=== PATIENT | female | born 1960 | race Caucasian/White ===

== ENCOUNTER 2018-01-04 07:31 | Observation (INO) | payer OTHER ==
[2018-01-04] MEDS ORDERED: FENTANYL CITR 100 MCG/2 ML ONE (08:22)
[2018-01-04] MEDS ORDERED: ONDANSETRON 4 MG/2 ML VIAL ONE (08:22)
[2018-01-04] MEDS ORDERED: NA CHLORIDE 0.9% 1,000 ML ONE (08:23)
[2018-01-04 08:37] LABS: Absolute Lymphocytes (CBC) 1.4 K/uL (0.7-4.9); Absolute Monocytes 0.5 K/uL (0.1-1.3); Basophils % 0.4 % (0-1.3); Eosinophils % 0.6 % (0-4.4); Hematocrit 42.4 % (36.0-45.0); Lymphocytes % 11.5 % (15.3-44.8); MCH 32.3 pg (27.0-35.0); MCV 90.8 fL (80-100); MPV 9.7 fL (7.6-11.3); Monocytes % 4.4 % (3.3-12.3); RBC Red Blood Cell Count 4.67 M/uL (3.86-4.86)
[2018-01-04 08:46] LABS: Protime INR 3.43
[2018-01-04 08:54] LABS: Albumin 4.3 g/dL (3.4-5.0); Bilirubin Direct 0.2 mg/dL (0-0.2); Bilirubin Total 1.2 mg/dL (0.2-1.0); CKMB Creatine Kinase MB 1.7 ng/mL (0.3-3.6); Magnesium 2.1 mg/dL (1.8-2.4); Potassium 3.1 mmol/L (3.5-5.1); Protein, Total 8.2 g/dL (6.4-8.2)
--- NOTE | 2018-01-04 09:27 | RAD REPORT ---
EXAM DESCRIPTION: CT - Chest Abdomen Pelvis W Cont - 01/04/2018 9:13 am CLINICAL HISTORY: Fall, chest pain, left-sided abdomen and back pain COMPARISON: None. TECHNIQUE: Following dynamic enhancement using 100 milliliters nonionic IV contrast, axial imaging o f the chest, abdomen and pelvis was performed. Biphasic technique was utilized through the abdomen. Oral contrast was administered. All CT scans are performed using dose optimization technique as appropriate and may include automated exposure control or mA/KV adjustment according to patient size. FINDINGS: Lungs are clear of mass and infiltrate. No pleural effusion, pleural thickening or pneumot horax. Minimal posterior gutter dependent atelectasis. No significant aortic or pulmonary arterial tr ee finding. Mediastinal and hilar regions show no mass or abnormal lymphadenopathy. No chest wall mas s or axillary lymphadenopathy. Nondisplaced posterior left eleventh rib fracture. There is contusion of the posterior left subcutaneous fatty tissues of the lower back. No hematoma of the paraspinal mus culature. No other rib fractures seen. The liver, spleen and pancreas show no acute or posttraumatic findings. Liver does demonstrate a mild diffuse fatty infiltration pattern. Gallbladder and biliary tree are unremarkable. Gallstones can b e occult on CT imaging. Symmetric renal function is seen with no mass or hydronephrosis. No adrenal a bnormalities. No retroperitoneal hematoma or contusion changes. Large amount of stool is present filling but not dilating the colon. An acute colon process is not id entifiable. No acute stomach or small bowel finding identifiable. No acute GI findings seen. No acute or destructive bony process. Scattered bony degenerative changes are present. No significant vascular findings. IMPRESSION: Nondisplaced posterior left eleventh rib fracture. There is contusion change in the subc utaneous fatty tissues of the lower thoracic adjacent to this rib fracture. There is no pneumothorax, pulmonary contusion or splenic injury. No other acute traumatic finding. Full findings are detailed in the body of the report.
--- NOTE | 2018-01-04 09:56 | RAD REPORT ---
EXAM DESCRIPTION: RAD - Chest Single View - 01/04/2018 9:44 am CLINICAL HISTORY: Fall with chest trauma several days earlier. , persistent pain COMPARISON: August 2015 TECHNIQUE: AP portable chest image was obtained 0933 hour . FINDINGS: Lung volumes are low. No pulmonary contusion, pneumothorax or pleural fluid collection. St ernotomy wires are in place. Heart and vasculature are normal. No measurable pleural effusion and no pneumothorax. No gross bony abnormality seen. No acute aortic findings suspected. Chest exam was perf ormed subsequent to the CT chest. The eleventh rib fracture is not defined on shallow inspiration por table imaging. IMPRESSION: No acute cardiopulmonary process. Please see additional findings on CT chest report.
--- NOTE | 2018-01-04 10:09 | ER ---
Nurse's Notes [facility] Name: Cathy Clarke Age: 57 yrs Sex: Female : 1960 Arrival Date: 01/04/2018 Time: 07:31 Bed 5 Private MD: Diagnosis: Fracture of one rib, left side;Coagulation defect, unspecified;Chronic pain due to trauma-intractable;Hypokalemia Presentation: 01/04 07:39 Presenting complaint: Patient states: Fell while getting out of the bathtub Saturday, ss seen at urgent care yesterday, had XRAYs completed which were negative. Pt reports her L mid-lower back has been having spasms since last night. Transition of care: patient was not received from another setting of care. Onset of symptoms was January 01, 2018. Risk Assessment: Do you want to hurt yourself or someone else? Patient reports no desire to harm self or others. Initial Sepsis Screen: Does the patient meet any 2 criteria? No. Patient's initial sepsis screen is negative. Does the patient have a suspected source of infection? No. Patient's initial sepsis screen is negative. Care prior to arrival: None. 07:39 Method Of Arrival: Ambulatory ss 07:39 Acuity: CONNIE 4 ss Historical: - Allergies: 07:46 Codeine; ss 07:46 Augmentin; ss - PSHx: 07:46 Hysterectomy; mechanical heart valve; ss - Immunization history:: Adult Immunizations up to date. - Social history:: Smoking status: Patient/guardian denies using tobacco. - Ebola Screening: : Patient denies exposure to infectious person Patient denies travel to an Ebola-affected area in the 21 days before illness onset. - Family history:: not pertinent. Screenin:00 Abuse screen: Denies threats or abuse. Denies injuries from another. Nutritional ss screening: No deficits noted. On. Tuberculosis screening: Never had TB. Fall Risk None identified. Assessment: 07:39 General: Pt ambulated with ease to exam room five, refused to sit in wheelchair. Pt sat ss in exam bed which seemed to be a little uncomfortable, but was able to tolerate sitting after repositioning in bed. . Pain: Complains of pain in lumbar area and left mid back Pain currently is 4 out of 10 on a pain scale. at worst was 10 out of 10 on a pain scale. Quality of pain is described as aching, pt reports intermittent back spasms that began yesterday and that current medication for pain that was given by urgent care yesterday was not working. Pain began 4 days ago Is continuous. Neuro: Level of Consciousness is awake, alert, obeys commands, Oriented to person, place, time, situation, Purchase Analyst are equal bilaterally Speech is normal, Facial symmetry appears normal, Pupils are PERRLA. Respiratory: Airway is patent Trachea midline Respiratory effort is even, unlabored, Respiratory pattern is regular, symmetrical. Derm: Skin is intact, is healthy with good turgor, Skin is dry, Skin is pink, warm \\T\\ dry. normal. Musculoskeletal: Circulation, motion, and sensation intact. Capillary refill < 3 seconds, is brisk, in bilateral fingers. Swelling absent. 10:20 Reassessment: PO Challenge initiated. aj1 10:24 General: Appears in no apparent distress. comfortable, Behavior is. Pain: Complains of aj1 pain in lumbar area, left low back and left mid back Pain does not radiate. Neuro: Level of Consciousness is awake, alert, obeys commands, Oriented to person, place, time, situation, Speech is normal, Facial symmetry appears normal, Reports back pain. Cardiovascular: Patient's skin is warm and dry. Respiratory: Airway is patent Respiratory effort is even, unlabored, Respiratory pattern is regular, symmetrical. GI: No signs and/or symptoms were reported involving the gastrointestinal system. : No signs and/or symptoms were reported regarding the genitourinary system. EENT: No signs and/or symptoms were reported regarding the EENT system. Derm: Skin is pink, warm \\T\\ dry. normal. Musculoskeletal: Range of motion: intact in all extremities. 11:30 Reassessment: Pt is refusing to go home, states that she needs something strong to go home with. Dr. Palacios notified. 12:04 Reassessment: Pt is still upset after speaking with Dr. Palacios and myself about ss alternative plan of care. Pt seemed okay with plan of care until attempting to discharge again. Pt is upset still because she is still wanting "something stronger" to go home with. Percocet has been requested and patient asks if she can go home with more fentanyl patches. Donor Relations Manager, Lani notified and is here to speak with patient and . 12:25 General: While speaking with patient with Blaine GaribayDonor Relations Manager, patient reports that ss initial injury was in fact December 11, 2017 in [place], [place]. 12:26 Reassessment: blaine Garibaywarehouse representative has called Retail Pricing Coordinator Kaden Walker, who states ss to go ahead and admit patient. 13:53 Reassessment: Called cindy Davis RN. [place] with registration reports that patient ss is refusing to have wristband changed with room assignment. Pt is refusing until admitting physician sees her to see if she will receive something that is stronger for pain control on the floor. Dr. Hoffmann notified and states he will be down to speak with the patient soon. Pt verbalizes understanding. 14:01 Reassessment: Dr. Hoffmann at bedside discussing POC with patient. 14:13 Reassessment: Pt appears comfortable sitting up straight in bed smiling, eating chic ss maru a. Vital Signs: 07:46 BP 136 / 82; Pulse 83; Resp 16; Temp 97.8(TE); Pulse Ox 97% on R/A; Weight 72.57 kg; ss Height 5 ft. 5 in. (165.10 cm); Pain 5/10; 09:18 BP 127 / 69; Pulse 68; Resp 16; Pulse Ox 96% ; ss 10:24 BP 105 / 56; Pulse 71; Resp 18; Pulse Ox 97% on R/A; aj1 12:30 BP 140 / 79; Pulse 75; Resp 16; Pulse Ox 98% ; Pain 4/10; ss 13:30 BP 112 / 66; Pulse 67; Resp 14; Pulse Ox 96% on R/A; Pain 4/10; ss 07:46 Body Mass Index 26.63 (72.57 kg, 165.10 cm) ED Course: 07:31 Patient arrived in ED. as 07:37 Jose Palacois MD is Attending Physician. maria alejandra 07:45 Triage completed. ss 07:46 Arm band placed on right wrist. ss 07:49 Lluvia Louis, RN is Primary Nurse. ph 08:20 Missed attempt(s): 20 gauge in left antecubital area. Bleeding controlled, band aid dh3 applied, catheter tip intact. 08:23 Initial lab(s) drawn, by me, sent to lab. T\\T\\S collected, blood band applied to patient. dh3 Inserted saline lock: 22 gauge in left forearm, using aseptic technique. Blood collected. 09:00 Patient has correct armband on for positive identification. Bed in low position. Call ss light in reach. Side rails up X 1. Adult w/ patient. Pulse ox on. NIBP on. 09:13 CT Chest, Abdomen, Pelvis - W/Contrast: iv only In Process Unspecified. EDMS 09:13 CT completed. Patient tolerated procedure well. Patient moved back from CT. bq 09:40 XRAY Chest (1 view) In Process Unspecified. EDMS 11:04 INCENTIVE SPIROMETRY Sent. ss 12:33 Horace Hoffmann MD is Hospitalizing Provider. maria alejandra 14:20 No provider procedures requiring assistance completed. Patient admitted, IV remains in ss place. Administered Medications: 08:36 Drug: fentaNYL (PF) 25 mcg Route: IVP; Site: left forearm; ph 12:10 Follow up: Response: No adverse reaction ss 08:37 Drug: NS 0.9% 1000 ml Route: IV; Rate: 125 ml/hr; Site: left forearm; ph 08:37 Drug: Zofran 4 mg Route: IVP; Site: left forearm; ph 12:10 Follow up: Response: No adverse reaction ss 10:20 Drug: Potassium Effervescent Tablet 25 mEq Route: PO; aj1 12:10 Follow up: Response: No adverse reaction ss 10:55 Drug: fentaNYL (PF) 25 mcg Route: IVP; Site: left antecubital; ss 12:11 Follow up: Response: No adverse reaction; No change in condition ss 11:04 Drug: Valium 5 mg Route: PO; ss 12:11 Follow up: Response: No adverse reaction ss 11:04 Not Given (Duplicate Order): fentaNYL (PF) 25 mcg IVP once ss 11:04 Not Given (Duplicate Order): fentaNYL (PF) 25 mcg IVP once ss 11:57 Drug: fentaNYL Patch (50 mcg/hr) 1 patches {Note: R upper arm.} Route: Transdermal; Site: affected area; Outcome: 10:08 Discharge ordered by . maria alejandra 12:34 Decision to Hospitalize by Provider. maria alejandra 14:20 Admitted to Med/surg accompanied by tech, via wheelchair, room 225, with chart, Report ss called to MANUEL Davis see nurses notes 14:20 Condition: improved 14:20 Instructed on the need for admit. 14:24 Patient left the ED. ss Signatures: Dispatcher [employer] EDJennie Plata RN RN aj1 Jose Palacios MD MD cha Quilty, Betty bq Martinez, Amelia as Smirch, Shelby, RN RN ss Lluvia Louis RN RN Elizabeth Gaitan [facility] Corrections: (The following items were deleted from the chart) 14:41 12:04 Reassessment: Pt is still upset after speaking with Dr. Palacios and myself about ss alternative plan of care. Pt seemed okay with plan of care until attempting to discharge again. Pt is upset still because she is still wanting "something stronger" to go home with. Percocet has been requested and patient asks if she can go home with more fentanyl patches. Donor Relations Manager, Lani notified and is here to speak with patient and . ss
--- NOTE | 2018-01-04 10:09 | EDPHYS ---
Physician Documentation [facility] Name: Cathy Clarke Age: 57 yrs Sex: Female : 1960 Arrival Date: 01/04/2018 Time: 07:31 Bed 5 Private MD: ED Physician Jose Palacios HPI: 01/04 07:58 This 57 yrs old Female presents to ER via Ambulatory with complaints of Back maria alejandra Pain. 07:58 The patient presents with pain that is acute. The symptoms are located in the thoracic maria alejandra area, lumbar area, sacrum, left low back and left mid back. Onset: The symptoms/episode began/occurred 3 day(s) ago. The pain does not radiate. Associated signs and symptoms: The patient has no apparent associated signs or symptoms. The problem was sustained during a fall, while standing. Modifying factors: The patient symptoms are alleviated by remaining still, the patient symptoms are aggravated by bending, coughing, movement. Severity of symptoms: At their worst the symptoms were moderate, in the emergency department the symptoms are unchanged. Historical: - Allergies: 07:46 Codeine; ss 07:46 Augmentin; ss - PSHx: 07:46 Hysterectomy; mechanical heart valve; ss - Immunization history:: Adult Immunizations up to date. - Social history:: Smoking status: Patient/guardian denies using tobacco. - Ebola Screening: : Patient denies exposure to infectious person Patient denies travel to an Ebola-affected area in the 21 days before illness onset. - Family history:: not pertinent. ROS: 07:58 Constitutional: Negative for fever, chills, and weight loss, Eyes: Negative for injury, maria alejandra pain, redness, and discharge, ENT: Negative for injury, pain, and discharge, Neck: Negative for injury, pain, and swelling, Cardiovascular: Negative for chest pain, palpitations, and edema, Respiratory: Negative for shortness of breath, cough, wheezing, and pleuritic chest pain, Abdomen/GI: Negative for abdominal pain, nausea, vomiting, diarrhea, and constipation, : Negative for injury, bleeding, discharge, and swelling, MS/Extremity: Negative for injury and deformity, Skin: Negative for injury, rash, and discoloration, Neuro: Negative for headache, weakness, numbness, tingling, and seizure, Psych: Negative for depression, anxiety, suicide ideation, homicidal ideation, and hallucinations, Allergy/Immunology: Negative for hives, rash, and allergies, Endocrine: Negative for neck swelling, polydipsia, polyuria, polyphagia, and marked weight changes, Hematologic/Lymphatic: Negative for swollen nodes, abnormal bleeding, and unusual bruising. 07:58 Back: Positive for injury or acute deformity, decreased range of motion, pain at rest, pain with movement, of the lumbar area, left low back and left mid back. Exam: 07:58 Constitutional: This is a well developed, well nourished patient who is awake, alert, maria alejandra and in no acute distress. Head/Face: Normocephalic, atraumatic. Eyes: Pupils equal round and reactive to light, extra-ocular motions intact. Lids and lashes normal. Conjunctiva and sclera are non-icteric and not injected. Cornea within normal limits. Periorbital areas with no swelling, redness, or edema. ENT: Nares patent. No nasal discharge, no septal abnormalities noted. Tympanic membranes are normal and external auditory canals are clear. Oropharynx with no redness, swelling, or masses, exudates, or evidence of obstruction, uvula midline. Mucous membranes moist. Neck: Trachea midline, no thyromegaly or masses palpated, and no cervical lymphadenopathy. Supple, full range of motion without nuchal rigidity, or vertebral point tenderness. No Meningismus. Chest/axilla: Normal chest wall appearance and motion. Nontender with no deformity. No lesions are appreciated. Cardiovascular: Regular rate and rhythm with a normal S1 and S2. No gallops, murmurs, or rubs. Normal PMI, no JVD. No pulse deficits. Respiratory: Lungs have equal breath sounds bilaterally, clear to auscultation and percussion. No rales, rhonchi or wheezes noted. No increased work of breathing, no retractions or nasal flaring. Abdomen/GI: Soft, non-tender, with normal bowel sounds. No distension or tympany. No guarding or rebound. No evidence of tenderness throughout. Female : Normal external genitalia. MS/ Extremity: Pulses equal, no cyanosis. Neurovascular intact. Full, normal range of motion. Neuro: Awake and alert, GCS 15, oriented to person, place, time, and situation. Cranial nerves II-XII grossly intact. Motor strength 5/5 in all extremities. Sensory grossly intact. Cerebellar exam normal. Normal gait. Psych: Awake, alert, with orientation to person, place and time. Behavior, mood, and affect are within normal limits. 07:58 Back: pain, that is moderate, ROM is painful, normal spinal alignment noted, CVA tenderness, that is moderate, is noted on the left, vertebral tenderness, is appreciated at T8, T9, T10, T11, T12 and L1. Vital Signs: 07:46 BP 136 / 82; Pulse 83; Resp 16; Temp 97.8(TE); Pulse Ox 97% on R/A; Weight 72.57 kg; ss Height 5 ft. 5 in. (165.10 cm); Pain 5/10; 09:18 BP 127 / 69; Pulse 68; Resp 16; Pulse Ox 96% ; ss 10:24 BP 105 / 56; Pulse 71; Resp 18; Pulse Ox 97% on R/A; aj1 12:30 BP 140 / 79; Pulse 75; Resp 16; Pulse Ox 98% ; Pain 4/10; ss 13:30 BP 112 / 66; Pulse 67; Resp 14; Pulse Ox 96% on R/A; Pain 4/10; ss 07:46 Body Mass Index 26.63 (72.57 kg, 165.10 cm) MDM: 07:37 Patient medically screened. [facility] 08:00 Data reviewed: vital signs, nurses notes, lab test result(s), EKG, radiologic studies, [facility] CT scan, plain films. 01/04 07:58 Order name: Basic Metabolic Panel; Complete Time: 09:58 [facility] 01/04 07:58 Order name: CBC with Diff; Complete Time: 09:58 [facility] 01/04 07:58 Order name: Ckmb; Complete Time: 09:58 [facility] 01/04 07:58 Order name: CPK; Complete Time: 09:58 [facility] 01/04 07:58 Order name: LFT's; Complete Time: 09:58 [facility] 01/04 07:58 Order name: Magnesium; Complete Time: 09:58 [facility] 01/04 07:58 Order name: NT PRO-BNP; Complete Time: 09:58 [facility] 01/04 07:58 Order name: PT-INR; Complete Time: 09:58 [facility] 01/04 07:58 Order name: Ptt, Activated; Complete Time: 09:58 [facility] 01/04 07:58 Order name: Troponin (emerg Dept Use Only); Complete Time: 09:58 [facility] 01/04 07:58 Order name: Lipase; Complete Time: 09:58 [facility] 01/04 07:58 Order name: Type And Screen; Complete Time: 09:58 [facility] 01/04 11:37 Order name: Urine Dipstick--Ancillary (enter results) 01/04 12:56 Order name: ABO/RH no charge EDMS 01/04 07:58 Order name: XRAY Chest (1 view); Complete Time: 09:58 [facility] 01/04 07:58 Order name: EKG; Complete Time: 07:58 [facility] 01/04 07:58 Order name: Cardiac monitoring; Complete Time: 08:13 [facility] 01/04 07:58 Order name: EKG - Nurse/Tech; Complete Time: 08:13 [facility] 01/04 07:58 Order name: IV Saline Lock; Complete Time: 08:13 [facility] 01/04 07:58 Order name: CT Chest, Abdomen, Pelvis - W/Contrast: iv only; Complete Time: 09:58 [facility] 01/04 10:08 Order name: INCENTIVE SPIROMETRY [facility] 01/04 07:58 Order name: Labs collected and sent; Complete Time: 08:13 [facility] 01/04 07:58 Order name: O2 Per Protocol; Complete Time: 08:13 [facility] 01/04 07:58 Order name: O2 Sat Monitoring; Complete Time: 08:13 [facility] 01/04 07:58 Order name: Urine Dipstick-Ancillary (obtain specimen); Complete Time: 08:13 [facility] 01/04 10:04 Order name: PO challenge: juice; Complete Time: 10:20 [facility] Administered Medications: 08:36 Drug: fentaNYL (PF) 25 mcg Route: IVP; Site: left forearm; ph 12:10 Follow up: Response: No adverse reaction ss 08:37 Drug: NS 0.9% 1000 ml Route: IV; Rate: 125 ml/hr; Site: left forearm; ph 08:37 Drug: Zofran 4 mg Route: IVP; Site: left forearm; ph 12:10 Follow up: Response: No adverse reaction ss 10:20 Drug: Potassium Effervescent Tablet 25 mEq Route: PO; aj1 12:10 Follow up: Response: No adverse reaction ss 10:55 Drug: fentaNYL (PF) 25 mcg Route: IVP; Site: left antecubital; ss 12:11 Follow up: Response: No adverse reaction; No change in condition ss 11:04 Drug: Valium 5 mg Route: PO; ss 12:11 Follow up: Response: No adverse reaction ss 11:04 Not Given (Duplicate Order): fentaNYL (PF) 25 mcg IVP once ss 11:04 Not Given (Duplicate Order): fentaNYL (PF) 25 mcg IVP once ss 11:57 Drug: fentaNYL Patch (50 mcg/hr) 1 patches {Note: R upper arm.} Route: Transdermal; ss Site: affected area; Disposition: 01/04/18 12:34 Hospitalization ordered by Horace Hoffmann for Observation. Preliminary diagnosis are Fracture of one rib, left side, Coagulation defect, unspecified, Chronic pain due to trauma - intractable, Hypokalemia. - Bed requested for Telemetry/MedSurg (observation). - Status is Observation. ss - Condition is Stable. - Problem is new. - Symptoms have improved. UTI on Admission? No Signatures: Dispatcher [employer] EDMS Jennie Berger RN RN aj1 Jose Palacios MD MD cha Smirch, Shelby, RN RN Lluvia Louis RN RN ph Corrections: (The following items were deleted from the chart) 12:33 10:08 01/04/2018 10:08 Discharged to Home. Impression: Coagulation defect, unspecified; maria alejandra Fall (on)(from) incline; Hypokalemia; Fracture of one rib, left side - 11th. Condition is Stable. Forms are Medication Reconciliation Form, Thank You Letter, Antibiotic Education, Prescription Opioid Use. Follow up: Private Physician; When: 2 - 3 days; Reason: Recheck today's complaints, Continuance of care, Re-evaluation by your physician. Problem is new. Symptoms have improved. maria alejandra 14:20 12:34 Hospitalization Ordered by Horace Hoffmann MD for Observation. Preliminary ss diagnosis is Fracture of one rib, left side; Coagulation defect, unspecified; Chronic pain due to trauma - intractable; Hypokalemia. Bed requested for Telemetry/MedSurg (observation). Status is Observation. Condition is Stable. Problem is new. Symptoms have improved. UTI on Admission? No. maria alejandra 14:24 14:20 01/04/2018 12:34 Hospitalization Ordered by Horace Hoffmann MD for Observation. ss Preliminary diagnosis is Fracture of one rib, left side; Coagulation defect, unspecified; Chronic pain due to trauma - intractable; Hypokalemia. Bed requested for Telemetry/MedSurg (observation). Status is Observation. Condition is Stable. Problem is new. Symptoms have improved. UTI on Admission? No. ss
[2018-01-04] MEDS ORDERED: POTASSIUM 25 MEQ EFFERV TAB ONE (10:18)
[2018-01-04] MEDS ORDERED: DIAZEPAM 5 MG TABLET ONE (11:01)
[2018-01-04] MEDS ORDERED: FENTANYL 50 MCG/PATCH TD ONE (11:50)
[2018-01-04 14:08] LABS: Urine Blood NEGATIVE (NEG); Urine Glucose NEGATIVE (NEG); Urine Protein NEGATIVE (NEG); Urine pH 6.5 (5.0-7.0)
[2018-01-04] MEDS ORDERED: ONDANSETRON 4 MG/2 ML VIAL IV PRN (14:43)
[2018-01-04] MEDS ORDERED: DIAZEPAM 2 MG TABLET PO PRN (14:46)
[2018-01-04 15:39] LABS: Absolute Lymphocytes (CBC) 1.1 K/uL (0.7-4.9); Absolute Monocytes 0.4 K/uL (0.1-1.3); Absolute Neutrophil 7.2 K/uL (1.8-8.0); Basophils % 0.4 % (0-1.3); Eosinophils % 0.4 % (0-4.4); Hematocrit 41.2 % (36.0-45.0); Lymphocytes % 12.5 % (15.3-44.8); MCH 31.8 pg (27.0-35.0); MCV 91.2 fL (80-100); MPV 9.8 fL (7.6-11.3); Monocytes % 4.1 % (3.3-12.3); RBC Red Blood Cell Count 4.51 M/uL (3.86-4.86)
[2018-01-04] MEDS: MORPHINE 2 MG/ML SYR IV PRN ×2 (15:41→22:02)
[2018-01-04] MEDS: NA CHLORIDE 0.9% 1,000 ML IV SCH (15:42)
[2018-01-04 15:44] LABS: Albumin 3.9 g/dL (3.4-5.0); Potassium 3.5 mmol/L (3.5-5.1); Protein, Total 7.5 g/dL (6.4-8.2)
--- NOTE | 2018-01-04 16:24 | HP ---
Date of Admission: 01/04/2018 Reason For Admission: Back pain and spasm. History Of Present Illness: This is a 57-year-old female with history of hypertension, hepatitis B, mechanical heart valve, colitis, who presented with history of fall that happened in the bathroom on Saturday. Post fall, the patient had large bruising in the back area, mostly on the left side. Pos t fall, the patient was found to have a rib fracture, but she has not had much of pain around her fra cture. She continued to have back pain. She went to urgent care. She was given tramadol and muscle relaxant, which did not help. She decided to come to emergency room where she was evaluated. CT sc an of the chest, abdomen, and pelvis done today and that showed nondisplaced posterior left 11th rib fracture, contusion, change in the subcutaneous fatty tissue of the lower thoracic adjacent to the ri b. There was no pneumothorax, pulmonary contusion, or splenic injury. There was no other traumatic finding. Initially, ER physician, would like to send the patient home with pain medication, but she insisted to get oxycodone and Dr. Palacios could not provide that. She was started on Duragesic patc h, which the patient did not think that was enough. She was also given Valium. She continued to hav e spasm, and we admitted her to the floor to control her spasm and pain overnight. Her labs in the e mergency room showed all within normal except for mild leukocytosis, hemoglobin 15.1, PT/INR showed P T at 41, INR 3.43. Chemistry was sodium 137, potassium 3.1, GFR of 87, glucose 111, total bilirubin of 1.2. BNP of 137, globulin of 3.9. Currently, patient lying in bed. She looks comfortable, but s he is having episodes of spasms on and off. Past Medical History: Significant for: 1.Mechanical heart valve. 2.Lymphangitis. 3.Colitis. 4.Hepatitis B. 5.Hypertension. Past Surgical History: Significant for hysterectomy. Allergies: CODEINE. Social History: She is . She has 2 kids. 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 She does not smoke, but she drinks socially. She does not use any drugs. Family History: Significant for father of GBM. Mother alive and she has dementia. Medication: List is not available, but the patient stated that she takes Coumadin and according to t ER report, medications were not listed. Review of Systems: Denies any fever, chills, night sweats, dizziness, lightheadedness, headache, blurred vision. There was no change in weight or appetite. She has not had any cough, sputum, shortness of breath. No cole st pain, palpitations, PND, orthopnea, and dyspnea on exertion. No lower extremity edema. No nausea or vomiting, abdominal pain. Two bowel movements a day. No dysuria, frequency, urgency, hematuria. No history of depression, anxiety, seizure, or stroke. Physical Examination: Vital Signs: Blood pressure is 136/82, respiratory rate 16, pulse 83, temperature 97.8, saturating 9 7% on room air. General: The patient is alert, oriented, does not look in any distress except when she had a spasm. HEENT: Atraumatic, normocephalic. PERRLA. Oral mucosa is moist. Neck: Supple. No JVP. No carotid bruits. Chest: Clear to auscultation. Good air entry. Heart: Regular rate and rhythm. S1, S2 normal. No gallop or murmur. Abdomen: Soft, nontender. No masses. No hepatosplenomegaly. Positive bowel sounds. Extremities: No clubbing, cyanosis, or edema. Back: With a large bruising on the mid left area all the way to the sacrum bone. Neuro: Grossly intact. Laboratory Data: In the emergency room showed CBC within normal except for white blood cells 12. CM P was normal except for potassium of 3.1, glucose 111, total bilirubin 1.2. AST of 52, BNP of 110. CAT scan as mentioned above. Assessment/plan: A 57-year-old female with history of hypertension, mechanical heart valve, on antic oagulation, presented with fall and severe back spasm. 1.Back pain and back spasm. Continue patient on Duragesic patch 50 mcg, at this point, p.r.n. morph ine or oxycodone as needed. Also Valium. 2.Mechanical heart valve, patient on Coumadin. We will continue that after patient provided her brenna e dose. Her INR is 3.4, which is the goal. 3.Hypertension. We will resume patient's home medications when they are available. 4.We see patient discharge in the a.m. if her pain is well-controlled and spasm resolved. NKECHI/CAPRICE Voice ID: [id number]
[2018-01-04] MEDS ORDERED: WARFARIN SODIUM 7.5 MG TAB PO SCH (17:00)
[2018-01-04] MEDS ORDERED: POTASSIUM 25 MEQ EFFERV TAB PO ONE (19:54)
[2018-01-04] MEDS: Oxycodone HCl/Acetaminophen 1 TAB TAB PO PRN (20:20)
[2018-01-04] MEDS ORDERED: HOME MED 1 EA UNK (Melatonin/Pyridoxine [Melatonin 5 Mg Tablet] 1 EACH) PO SCH (21:00)
[2018-01-05] MEDS: NA CHLORIDE 0.9% 1,000 ML IV SCH ×2 (01:00→08:44)
[2018-01-05 05:14] LABS: Potassium 3.7 mmol/L (3.5-5.1)
[2018-01-05] MEDS ORDERED: POTASSIUM 25 MEQ EFFERV TAB PO ONE (05:27)
[2018-01-05] MEDS: Oxycodone HCl/Acetaminophen 1 TAB TAB PO PRN ×2 (05:42→12:32)
[2018-01-05] MEDS ORDERED: LOSARTAN/HCTZ 50-12.5 PO SCH (09:00)
[2018-01-05] MEDS ORDERED: CYANOCOBALAMIN 1,000 MCG TAB PO SCH (09:00)
[2018-01-05] MEDS ORDERED: VITAMIN D 1000 UNIT TAB PO SCH (09:00)
--- NOTE | 2018-01-06 04:46 | DS ---
Date of Discharge: 01/05/2018 Discharge Diagnoses: 1.Severe back spasm. 2.History of mechanical heart valve, on anticoagulation. 3.Hypertension. 4.Recent fall. History Of Present Illness: Please refer to my H and P from yesterday. Consults: None. Procedures: CAT scan of the chest, abdomen, and pelvis done on the did not show pneumothorax or pulmonary contusion. There was a nondisplaced posterior left 11th rib fracture. There was contusio n change in the subcutaneous fatty tissue without orthotic adjustment to this rib fracture. Hospital Course: Initially, the patient presented to emergency room with severe back spasm. CAT sca n of the abdomen and pelvis showed a nondisplaced fracture of 11th rib, but the patient did not have been there and she thought she had muscle spasm. The patient demanded to receive Percocet as outpati ent. ER physician refused to give her that. She was admitted for pain control. She was placed on D uragesic patch 50 mcg, Percocet, and Valium while she is inpatient. She tolerated the medication wel l and her back spasm improved significantly and she would like to go home today. She will be dischar [facility] today in stable condition. She will be given 30 tablets of Percocet. She will need to follow up with her primary care physician for her back spasm. Discharge Condition: Stable. Discharged Diet: Regular. Discharge Followup: With primary care physician this week. Discharge Activity: As tolerated. Discharge Medications: Coumadin 7.5 mg orally once a day, Percocet 1 tablet every 6 hours p.r.n. gayle n count 30, vitamin D 1000 units daily, colestipol 7.5 g packets 4 g daily, losartan 50/12.5 daily, m elatonin 1 tablet at bedtime. Physical Examination: Vital Signs: Currently blood pressure is 115/57, respiratory rate 20, pulse 72, temperature 97.2, sa turating 94 on room air. General: She is alert and oriented x3. Does not look in any distress. HEENT: Atraumatic, normocephalic. PERRLA. Oral mucosa is moist. Neck: Supple. There is no JVD, no carotid bruits. Chest: Clear to auscultation. Good air entry. Heart: Regular rate and rhythm. S1, S2 normal. No gallop, rub, or murmur. Abdomen: Soft, nontender. No masses. No hepatosplenomegaly. Bowel sounds positive. Extremities: No clubbing, cyanosis, or edema. No calf tenderness. Skin: With large bruising on mid to lower left back all the way to the tailbone. NKECHI/CAPRICE Voice ID: [id number] Report ID: [id number]
--- NOTE | 2018-01-16 16:15 | P.CNS ---
Date of Consult: 01/16/18 57-year-old female who was admitted to the hospital for pain control of left- sided posterior nondisplaced rib fracture that is chronic in nature. The patient was initially admitted under the care of a different hospitalist. However, I was consulted on the case to prescribe patient Percocet for total of 30 days for her pain management, and that current hospitalist did not have any triplicates. After detailed reviewing of patient's chart it was noted that patient was currently on fentanyl patch and had filled prescription of tramadol for pain management. [place] prescription program was checked and patient has a new refill of total of 30 tablets of tramadol. 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 Patient had mentioned that she has more of back spasms and pain. Further review of her chart patient has a reported allergy to codeine and her AST was slightly elevated. Patient's medical records also indicated the patient was on benzodiazepine here in the hospital. According to the best clinical practice and evidence based medicine pain management for rib fracture should be considered while treating the patient. However, since Patient was already taking fentanyl patch, tramadol and benzodiazepine here in the hospital , patient was at higher risk for adverse events. Thus Percocet would not be an ideal medication for further pain management. As I will not be able to follow the patient outside for any side effects or adverse reaction the decision was made that patient cannot be prescribed Percocet by me for total of 30 days. I notified the patient regarding the decision however patient continued to state that she was promised prescription of Percocet in the ER and she will be not leaving the hospital without a prescription. At that time patient was asked to follow up with her primary care provider and see if they can prescribe her the pain medication as they will be appropriately f/u with her. Patient however refused and stated that she needed a prescription as she was promised in the ER. At that time patient was offered the ppx for 5 days however she declined and stated she would just like to get what she was promised in the ER. 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 Patient was notified that she is already on a fentanyl patch and cannot be prescribed any further medication due to risk of side effects given her allergy, elevated AST, and use of benzodiazepines. Patient at that time stated that she will be calling administration for further help. I notified the charge nurse regarding the decision and asked her to call administration for further help for the patient. Charge nurse notified administration. Charge nurse notified the patient regarding the decision of not being able to prescribe Percocet for 30 days and that she will need to follow up with primary care doctor or pain management doctor for further help. Patient at that time got angry and stated that she will be calling administration and not be paying for this hospital visit. The charge nurse noted details of the conversation in the chart.
== END 2018-01-05 14:30 | disposition home or self-care (01) ==
LOC: ER 07:31 → ERHOLD 12:35 → 2ND 13:49
PROVIDERS: ADMIT Internal Medicine; ATTEND Internal Medicine
DX: M62.830 Muscle spasm of back (principal); M54.9 Dorsalgia, unspecified; I10 Essential (primary) hypertension; S22.32XA Fracture of one rib, left side, initial encounter for closed fracture; Z95.2 Presence of prosthetic heart valve; Z79.01 Long term (current) use of anticoagulants
CPT/HCPCS: 36415; 71045; 71260; 74177; 80048; 80053; 80076; 81003; 82550; 82553; 83690; 83735; 83880; 84484; 85025; 85610; 85730; 86850; 86900; 86901; 97163; 99285; G0378; J2270; J2405; J3010; J7030; Q9967